=== PATIENT | female | born 1995 | race Caucasian/White ===

== ENCOUNTER 2016-12-22 10:31 | Emergency (ER) | payer MEDICAID, OTHER ==
[~2016-12-22 10:31] MED LIST: PRENMIS7 PO; TERC.4%V VAGINAL
[2016-12-22 10:57] VITALS: BP 103/60; PULSE 98; RESP 18; TEMP 98.4
--- NOTE | 2016-12-22 11:50 | PD ---
HPI Chief Complaint contractile pain for 1 hour Date Seen: Dec 22, 2016 Time Seen: 11:15 (Jason Galvan MD R1) Travel History International Travel<30 Days: No Contact w/Intl Traveler<30Days: No Known Affected Area: No (Jason Galvan MD R1) History of Present Illness HPI 21-year-old at 31 and 6 weeks presents with 1 hour of contractile pain this morning. Patient treated with terconazole [address] Vickey Salcido for yeast infection. Patient notes some vaginal discharge over the past few days. Patient denies chest pain, vomiting, diarrhea, DVT calf pain, but feels like she gets short of breath on exertion. Monitor shows category 1 tracing. Para: 1 : 3 Miscarriage: 1 (Jason Galvan MD R1) History Past Medical History Medical History: Denies Significant Hx (Jason Galvan MD R1) Obstetric History Obstetric History FTSVD x 1 SAB x 1 (Mckenna Nur MD) Past Surgical History Surgical History: No Previous Surgery (Jason Galvan MD R1) Family History Family History: Negative (Jason Galvan MD R1) Social History Alcohol Use: No Tobacco Use: No Substance Abuse: No (Jason Galvan MD R1) Allergies-Medications (Allergen,Severity, Reaction): Coded Allergies: No Known Allergies (Unverified , 12/21/16) Home Meds Active Scripts Terconazole Vaginal Cream (Terazol 7 Vaginal Cream)0.4 % Cream1 Appl VAGINAL HS #45 GM Ref 0 1 applicatorful intravaginally x 7 nights Prov:Chepe Ramirez MD 12/21/16 W/O Vit A W/ Fe Carbo Pack (Citranatal B-Calm Pack)20-1 & 25 (2) Mg Pack1 Ea PO DIRECTED #30 BLISTER Ref 0 30 day supply. Prov:Karolina Saavedra CNM CONSULTING SOLUTION MANAGER 07/13/16 Review of Systems Except as stated in HPI: all other systems reviewed are Neg (Jason Galvan MD R1) Physical Exam Vital Signs Date Time Temp Pulse Resp B/P Pulse Ox O2 Delivery O2 Flow Rate FiO2 12/22/16 10:57 18 12/22/16 10:57 98.4 98 103/60 Narrative GENERAL: Well-nourished, well-developed patient in NAD. SKIN: Warm and dry. HEAD: Normocephalic and atraumatic. EYES: No scleral icterus. No injection or drainage. EOMI. ENT: No nasal drainage noted. Mucous membranes pink. Airway patent. NECK: Supple, trachea midline. CARDIOVASCULAR: Regular rate and rhythm without murmurs, gallops, or rubs. RESPIRATORY: Breath sounds equal bilaterally w/no increased WOB. No accessory muscle use. ABDOMEN/GI: Abdomen soft, non-tender, no rebound, no guarding Gravid to [32] weeks size Fundal Height: [32] GENITOURINARY: External genitalia intact and normal in appearance; copious while , curdy discharge in the vagina; cervical normal in appearance Cervix: [open] Dilatation: [1] Effacement: [25] Station: [-3] Presentation: [vtx] Membranes: [undetermined] Uterine Contractions: [no] FHT's: Category: [1] Baseline: [140] Reactive: [yes] Variability: [moderate] Decels: [0] EXTREMITIES: No cyanosis or edema. NEUROLOGICAL: Awake and alert. Motor and sensory grossly within normal limits. CN II-XII grossly intact. Normal speech. (Jason Galvan MD R1) Data Data Vital Signs Reviewed: Yes Orders Vital Signs (Adult) .ON ADMISSION (12/22/16 10:51) ^ Labor Status (12/22/16 10:51) ^ Non Stress Test (12/22/16 10:51) ^ Hydration (12/22/16 10:51) Fibronectin (12/22/16 10:55) Urinalysis - C+S If Indicated (12/22/16 11:18) (Jason Galvan MD R1) Labs Laboratory Tests Test 12/22/16 11:34 Urine Color YELLOW Urine Turbidity HAZY Urine pH 7.0 Urine Specific [place] 1.015 Urine Protein NEG mg/dL Urine Glucose (UA) 70 mg/dL Urine Ketones NEG mg/dL Urine Occult Blood NEG Urine Nitrite NEG Urine Bilirubin NEG Urine Urobilinogen LESS THAN 2.0 MG/DL Urine Leukocyte Esterase NEG Urine RBC 1 /hpf Urine WBC 1 /hpf Urine Squamous Epithelial 1 /hpf Cells Urine Bacteria RARE /hpf Urine Mucus FEW /lpf Microscopic Urinalysis Comment CULT NOT INDICATED Fibronectin NEGATIVE (Mckenna Nur MD) MDM Narrative Course / MDM 21-year-old at 31 and 6 weeks gestation presents with 1 hour of contractile pain. Monitor shows no contractions but category 1 tracing. 1. IUP - Category 1 tracing and no contractions - F/u with Dr Ramirez 2. Cramping pain, antepartum - No contractions on monitor - fibronectin test - UA 3. Yeast infection - Continue terconazole as prescribed (Jason Galvan MD R1) Narrative Course / MDM 21 y/o with IUP at 31.6 wks with c/o contractions FFN neg no evidence of labor at this time PTL precautions reviewed. Increase hydration. Attending Attestation The exam, history, and the medical decision-making described in the above note were completed with the assistance of the resident provider. I reviewed and agree with the findings presented. I attest that I had a [id number] encounter with the patient on the same day, and personally performed and documented my assessment and findings in the medical record. (Mckenna Nur MD) Diagnosis Diagnosis: Primary Impression: Cramping affecting , antepartum Additional Impression: Yeast infection involving the vagina and surrounding area Disposition: 01 DISCHARGE HOME Condition: Stable Patient Instructions: Labor (ED) Jason Galvan MD R1 Dec 22, 2016 11:50 Mckenna Nur MD Dec 22, 2016 12:46
[2016-12-22 12:04] LABS: BACTERIA, URINE RARE /hpf; BLOOD, URINE NEG (NEG); GLUCOSE,URINE 70 mg/dL (NEG); KETONE, URINE NEG (NEG); MUCUS URINE FEW /lpf (OCC); NITRITE,URINE NEG (NEG); SQUAMOUS EPITHELIAL CELL URINE 1 /hpf (0-5); URINE COLOR YELLOW (YELLW/STRAW)
[2016-12-22 12:05] LABS: COMMENT (UR) CULT NOT INDICATED; CULTURE IF INDICATED CULT NOT INDICATED
== END 2016-12-22 13:04 | disposition home or self-care (01) ==
LOC: HOBED 10:31
DX: O26.893 Other specified pregnancy related conditions, third trimester (principal); R10.9 Unspecified abdominal pain; O98.813 Other maternal infectious and parasitic diseases complicating pregnancy, third trimester; B37.3 Candidiasis of vulva and vagina; Z3A.31 31 weeks gestation of pregnancy
CPT/HCPCS: 81001; 82731; 99283

== ENCOUNTER 2017-01-05 15:38 | Emergency (ER) | payer OTHER ==
[~2017-01-05] VITALS: Ht 147.3 cm; Wt 64.9 kg
[~2017-01-05 15:38] MED LIST changes: -TERC.4%V VAGINAL
[2017-01-05] MEDS ORDERED: LACTATED RINGER'S 1000 ML INJ 500 ML IV ONE (16:41)
[2017-01-05] MEDS ORDERED: TERBUTALINE INJ 1 MG/ML AMP SQ ONE (16:45)
--- NOTE | 2017-01-05 17:17 | PD ---
HPI Chief Complaint Decreased movement Date Seen: Jan 05, 2017 Travel History International Travel<30 Days: No Contact w/Intl Traveler<30Days: No Known Affected Area: No History of Present Illness HPI Patient is a 21-year-old at 33 weeks and 5 days who presents with decreased movement since yesterday. [facility] She reports that she stills feels some movement, but feels slower than usual. She has tried pushing on her belly, drinking cold water , sips of Pepsi, without any significant change in her movement. She currently denies any contractions, vaginal bleeding, leakage of fluid. However, she does report having some [place] contractions around 2 PM today. She also reports having a cold, for which she has been taking Tylenol Cold and sinus. She reports runny nose, sore throat, cough, sinus pressure. Para: 1 : 3 Miscarriage: 1 History Past Medical History Medical History: Denies Significant Hx Obstetric History Obstetric History Patient reports that her last was a miscarriage at 25 weeks. Prior to that, she delivered a full-term healthy baby boy at 39 weeks by induction of labor, weighing 7 pounds and 6 ounces. Past Surgical History Surgical History: No Previous Surgery Family History Family History: Negative Social History Narrative Social History Patient reports living with her 3-year-old son and boyfriend. Alcohol Use: No Tobacco Use: No Substance Abuse: No Allergies-Medications (Allergen,Severity, Reaction): Coded Allergies: No Known Allergies (Unverified , 01/04/17) Home Meds Active Scripts W/O Vit A W/ Fe Carbo Pack (Citranatal B-Calm Pack)20-1 & 25 (2) Mg Pack1 Ea PO DIRECTED #30 BLISTER Ref 0 30 day supply. Prov:Karolina Saavedra CNM CHAIR FRAME BUILDER 07/13/16 Discontinued Scripts Terconazole Vaginal Cream (Terazol 7 Vaginal Cream)0.4 % Cream1 Appl VAGINAL HS #45 GM Ref 0 1 applicatorful intravaginally x 7 nights Prov:Chepe Ramirez MD 12/21/16 Review of Systems General / Constitutional: Fever Cardiovascular: No: Chest Pain or Discomfort Respiratory: No: Short of Breath Gastrointestinal: No: Nausea, Vomiting, Abdominal Pain Genitourinary: No: Dysuria Physical Exam 102/52, 114, 15, 0 pain Narrative GENERAL: Well-nourished, well-developed patient. SKIN: Warm and dry. HEAD: Normocephalic and atraumatic. EYES: No scleral icterus. No injection or drainage. ENT: No nasal drainage noted. Mucous membranes pink. Airway patent. NECK: Supple, trachea midline. No JVD. CARDIOVASCULAR: Regular rate and rhythm without murmurs, gallops, or rubs. RESPIRATORY: Breath sounds equal bilaterally. No accessory muscle use. ABDOMEN/GI: Abdomen soft, non-tender, bowel sounds present, no rebound, no guarding Gravid to 33 weeks size GENITOURINARY: External Genitalia: intact and normal in appearance Cervix: Posterior Dilatation: Closed Effacement: Thick Station: Far Presentation: Vertex Membranes: [intact] Uterine Contractions: Every minute FHT's: Category: Category 1 Baseline: 135 Reactive: Reactive Variability: moderate Decels: none EXTREMITIES: No cyanosis or edema. BACK: Nontender without obvious deformity. No CVA tenderness. NEUROLOGICAL: Awake and alert. Motor and sensory grossly within normal limits. Five out of 5 muscle strength in all muscle groups. Normal speech. Data Data Vital Signs Reviewed: Yes Orders Vital Signs (Adult) .ON ADMISSION (01/05/17 16:41) ^ Labor Status (01/05/17 16:41) ^ Non Stress Test (01/05/17 16:41) ^ Hydration (01/05/17 16:41) Fibronectin (01/05/17 16:41) Lactated Ringer's 1000 Ml Inj (Lr 1000 M (01/05/17 16:41) Terbutaline Inj (Brethine Inj) (01/05/17 16:45) Fentanyl Inj (Fentanyl Inj) (01/05/17 17:00) MDM Plan Patient is a 21-year-old at 33 weeks and 5 days who presents with decreased movement since yesterday. She was found to have contractions about every minute. Cervical exam is long thick and closed. 1. contractions LR IV bolus Terbutaline 1 Fentanyl 1 Monitor vitals Monitor labor status Monitor heart rate Addendum: pt seems to have stopped maite. Plan on d/c. Patient discussed with Dr. Russell. Diagnosis Diagnosis: Primary Impression: contractions Additional Impression: Decreased movement Disposition: 01 DISCHARGE HOME Condition: Good Dave Singh MD R1 Jan 05, 2017 17:17
[2017-01-05 18:15] VITALS: TEMP 97.9
[2017-01-05 18:16] VITALS: BP 98/48; PULSE 119
== END 2017-01-05 18:47 | disposition home or self-care (01) ==
LOC: HOBED 15:38
DX: O36.8130 Decreased fetal movements, third trimester, not applicable or unspecified (principal); O47.03 False labor before 37 completed weeks of gestation, third trimester; R09.89 Other specified symptoms and signs involving the circulatory and respiratory systems; J02.9 Acute pharyngitis, unspecified; R05 Cough; Z3A.33 33 weeks gestation of pregnancy; Z79.899 Other long term (current) drug therapy
CPT/HCPCS: 59025; 82731; 96361; 96372; 96374; 99284; J3010; J3105; J7120

== ENCOUNTER 2017-01-24 13:21 | Emergency (ER) | payer OTHER ==
--- NOTE | 2017-01-24 14:22 | PD ---
HPI Chief Complaint Vaginal discharge (Dave Shirley MD R1) Travel History International Travel<30 Days: No Contact w/Intl Traveler<30Days: No Known Affected Area: No (Dave Shirley MD) History of Present Illness HPI at 36 and 3 weeks who presents for discharge from vagina. Patient states that 3 AM this morning she got up to the bathroom and noticed her underwear were wet. When she woke up to start the day she went to go urinate again and noticed her underwear were wet again. She then came into the ED. She states she currently has no contractions, no large releases of fluid from her vagina. Occasionally will have a release of fluid when the baby kicks. Feels as though she needs to go to the bathroom more often, otherwise no change in urination. Denies nausea, vomiting, fever, chills, shortness of breath, chest pain, abdominal pain, change in bowel habits. Para: 1 : 3 Miscarriage: 1 (Dave Shirley MD) History Past Medical History Medical History: Denies Significant Hx (Dave Shirley MD) Past Surgical History Surgical History: No Previous Surgery (Dave Shirley MD) Family History Family History: Negative (Dave Shirley MD) Social History Alcohol Use: No Tobacco Use: No Substance Abuse: No (Dave Shirley MD) Allergies-Medications (Allergen,Severity, Reaction): Coded Allergies: No Known Allergies (Unverified , 01/23/17) Home Meds Active Scripts W/O Vit A W/ Fe Carbo Pack (Citranatal B-Calm Pack) 20-1 & 25 (2) Mg Pack, 1 EA PO DIRECTED for Nutritional Supplement, #30 BLISTER 0 Refills 30 day supply. Prov:Karolina Saavedra CNMP 07/13/16 Review of Systems General / Constitutional: No: Fever, Weight Loss, Chills Eyes: No: Diploplia, Blurred Vision, Visual changes, Pain HENT: No: Headaches, Vertigo, Dental Difficulties, Lightheadedness Cardiovascular: No: Irregular Rhythm, Chest Pain or Discomfort, Palpitations, Tachycardia, Syncope Respiratory: No: Cough, Short of Breath, Wheezing Gastrointestinal: No: Nausea, Vomiting, Diarrhea, Abdominal Pain, Hematemesis, Hematochezia, Constipation Genitourinary: Frequency, Nocturia, Incontinence, No: Urgency, Dysuria, Hematuria, Decreased Urinary Output, Oliguria, Hesitancy, Dribbling, Discharge, Vaginal Bleeding Musculoskeletal: No: Limited ROM, Weakness, Cramping, Edema Skin: No Rash, No Itching, No Dryness, No Lumps Neurologic: No: Weakness, Dizziness, Syncope Psychiatric: No: Anxiety, Depression Endocrine: Polyuria, No: Heat Intolerance, Cold Intolerance, Polydipsia (Dave Shirley MD R1) Physical Exam Narrative GENERAL: Well-nourished, well-developed patient. SKIN: Warm and dry. HEAD: Normocephalic and atraumatic. EYES: No scleral icterus. No injection or drainage. ENT: No nasal drainage noted. Mucous membranes pink. Airway patent. NECK: Supple, trachea midline. No JVD. CARDIOVASCULAR: Regular rate and rhythm without murmurs, gallops, or rubs. RESPIRATORY: Breath sounds equal bilaterally. No accessory muscle use. ABDOMEN/GI: Abdomen soft, non-tender, bowel sounds present, no rebound, no guarding EXTREMITIES: No cyanosis or edema. BACK: Nontender without obvious deformity. No CVA tenderness. NEUROLOGICAL: Awake and alert. Motor and sensory grossly within normal limits. Five out of 5 muscle strength in all muscle groups. Normal speech. (Dave Shirley MD R1) MDM Plan 21 year old at 36 and 3/7 weeks who presented with occasional wetness in her underwear and urination when her baby kicked. Amnisure negative. Likely incontinence. -Category 1 tracing reassuring -Patient advised on creating urination schedules -Patient counseled on sings and symptoms to return and be reevaluated in the L& D ED d/w Dr. Spear (Dave Shirley MD R1) Diagnosis Diagnosis: Primary Impression: 36 weeks gestation of Additional Impressions: No leakage of amniotic fluid into vagina False labor before 37 completed weeks of gestation during in third trimester, antepartum Disposition: 01 DISCHARGE HOME Condition: Stable Attestation Patient seen at the bedside. Agree with resident's assessment and plan. (Perla Spear MD) Dave Shirley MD R1 Jan 24, 2017 14:22 Perla Spear MD Jan 24, 2017 16:02
[2017-02-07] MEDS ORDERED: FERRTAB2 PO (13:32)
[2017-02-24] MEDS ORDERED: CEPH-460 PO (11:06)
== END 2017-01-24 14:45 | disposition home or self-care (01) ==
LOC: HOBED 13:21
DX: Z03.71 Encounter for suspected problem with amniotic cavity and membrane ruled out (principal); N39.3 Stress incontinence (female) (male); O47.03 False labor before 37 completed weeks of gestation, third trimester; Z3A.36 36 weeks gestation of pregnancy
CPT/HCPCS: 84112; 99281

== ENCOUNTER 2017-02-07 16:51 | Emergency (ER) | payer OTHER ==
[~2017-02-07 16:51] MED LIST changes: +FERRTAB2 PO
--- NOTE | 2017-02-07 18:00 | PD ---
HPI Chief Complaint Contractions Date Seen: Feb 07, 2017 Time Seen: 17:55 Travel History International Travel<30 Days: No Contact w/Intl Traveler<30Days: No Known Affected Area: No History of Present Illness HPI 21-year-old who is at 38 weeks and 3 days was seen at the office today and was noted to be 3 cm. She lives in [place], and just wanted to ensure that her irregular contractions did not signify labor. Patient has been complaining of irregular contractions for the past several days associated with some pelvic pressure. Weeks Gestation: 38 Para: 2 : 3 History Past Medical History Medical History: Denies Significant Hx Obstetric History Obstetric History Spontaneous vaginal delivery 7 lbs. 6 oz. 26 weeks demise Past Surgical History Surgical History: No Previous Surgery Family History Family History: Negative Social History Alcohol Use: No Tobacco Use: No Substance Abuse: No Allergies-Medications (Allergen,Severity, Reaction): Coded Allergies: No Known Allergies (Unverified , 02/07/17) Home Meds Active Scripts Multi-Vit/Iron-Folic [id number] C (Ferralet) 90-1-0.012-120 mg Tab, 1 CAPLET PO DAILY for 30 Days, #30 CAPLET Prov:Lori DowP 02/07/17 W/O Vit A W/ Fe Carbo Pack (Citranatal B-Calm Pack) 20-1 & 25 (2) Mg Pack, 1 EA PO DIRECTED for Nutritional Supplement, #30 BLISTER 0 Refills 30 day supply. Prov:Karolina Saavedra CNM [facility] 07/13/16 Review of Systems Except as stated in HPI: all other systems reviewed are Neg Physical Exam Narrative GENERAL: Well-nourished, well-developed patient. SKIN: Warm and dry. HEAD: Normocephalic and atraumatic. EYES: No scleral icterus. No injection or drainage. ENT: No nasal drainage noted. Mucous membranes pink. Airway patent. NECK: Supple, trachea midline. No JVD. CARDIOVASCULAR: Regular rate and rhythm without murmurs, gallops, or rubs. RESPIRATORY: Breath sounds equal bilaterally. No accessory muscle use. BREASTS: Bilateral exam showed no masses , no retractions, no nipple discharge. ABDOMEN/GI: Abdomen soft, non-tender, bowel sounds present, no rebound, no guarding Gravid to [-38] weeks size Fundal Height: [-] GENITOURINARY: External Genitalia: intact and normal in appearance BUS glands: [Normal-] Cervix: Posterior [-] Dilatation: [-3] Effacement: [50-] Station: [--3] Presentation: [Vertex-] Membranes: [intact] Uterine Contractions: [Occasional-] FHT's: Category: [-1] Baseline: [150-] Reactive: [-Moderate] Variability: [-Moderate] Decels: [-Absent] EXTREMITIES: No cyanosis or edema. BACK: Nontender without obvious deformity. No CVA tenderness. NEUROLOGICAL: Awake and alert. Motor and sensory grossly within normal limits. Five out of 5 muscle strength in all muscle groups. Normal speech. Data Data Vital Signs Reviewed: Yes Group B Strep: Negative [facility] Medical Record Reviewed: Yes Plan 21-year-old at 38 weeks 3 days with false labor, no cervical change from her appointment this afternoon at 1 PM. Group B strep negative Reviewed labor precautions Patient has appointment for follow-up next Monday Diagnosis Diagnosis: Primary Impression: False labor after 37 weeks of gestation without delivery Additional Impression: 38 weeks gestation of Disposition: DISCHARGE HOME Purvi Robbins MD Feb 07, 2017 18:00
[2017-02-24] MEDS ORDERED: CEPH-460 PO (11:06)
== END 2017-02-07 18:00 | disposition home or self-care (01) ==
LOC: HOBED 16:51
DX: O47.1 False labor at or after 37 completed weeks of gestation (principal); Z3A.38 38 weeks gestation of pregnancy
CPT/HCPCS: 99283

== ENCOUNTER 2017-02-20 12:02 | Inpatient (IN) | payer OTHER ==
[~2017-02-20] VITALS: Ht 147.3 cm; Wt 69.0 kg
[2017-02-20] VITALS (51 sets, daily range): BP systolic 85–153; BP diastolic 41–98; PULSE 86–116; RESP 15–18; TEMP 97.3–98.8
--- NOTE | 2017-02-20 12:48 | PD ---
HPI Chief Complaint Contractions with pressure Date Seen: Feb 20, 2017 Travel History International Travel<30 Days: No Contact w/Intl Traveler<30Days: No History of Present Illness HPI Mrs. Mason is a 21-year-old at 40/2 weeks gestation presenting with vaginal pressure and contractions. She states that [facility] morning for the same complaints and was sent to the OB ED after evaluation. At the office her cervix was soft and stretching and found to be 5 cm dilation. Since that time she states that she has had contractions every 3-5 minutes for over half an hour. She endorses good movement and denies any loss of fluid, dysuria, vaginal bleeding, or discharge. She reports intermittent headaches with blurry vision as well as mild edema of the bilateral lower extremities. She has not had hypertension during this per chart review. Otherwise she has no complaints and denies a complete review of systems. Weeks Gestation: 40 Para: 3 : 1 History Past Medical History Narrative Medical Denies significant medical history Obstetric History Obstetric History First - 25 week miscarriage Second - uncomplicated at 39 weeks gestation with 7 lbs. 6 oz. baby boy Third - uncomplicated thus far Past Surgical History Surgical History: No Previous Surgery Family History Narrative Family History Denies significant family medical history Social History Alcohol Use: No Tobacco Use: No Substance Abuse: No Allergies-Medications (Allergen,Severity, Reaction): Coded Allergies: No Known Allergies (Unverified , 02/20/17) Home Meds Active Scripts Multi-Vit/Iron-Folic [id number]-X31-Mlx C (Ferralet) 90-1-0.012-120 mg Tab, 1 CAPLET PO DAILY for 30 Days, #30 CAPLET Prov:Lori Dow 02/07/17 W/O Vit A W/ Fe Carbo Pack (Citranatal B-Calm Pack) 20-1 & 25 (2) Mg Pack, 1 EA PO DIRECTED for Nutritional Supplement, #30 BLISTER 0 Refills 30 day supply. Prov:Karolina Saavedra CNM VESSEL ENGINEER 07/13/16 Review of Systems Except as stated in HPI: all other systems reviewed are Neg Eyes: Visual changes (mild) Neurologic: Headache (mild) Physical Exam Narrative GENERAL: Well-nourished, well-developed patient. SKIN: Warm and dry. HEAD: Normocephalic and atraumatic. EYES: No scleral icterus. No injection or drainage. ENT: No nasal drainage noted. Mucous membranes pink. Airway patent. NECK: Supple, trachea midline. No JVD. CARDIOVASCULAR: Regular rate and rhythm without murmurs, gallops, or rubs. RESPIRATORY: Breath sounds equal bilaterally. No accessory muscle use. ABDOMEN/GI: Abdomen soft, non-tender, bowel sounds present, no rebound, no guarding Gravid to 40 weeks GENITOURINARY: External Genitalia: intact and normal in appearance Cervix: Mid Dilatation: 5 cm Effacement: 80% Station: -2 Membranes: Intact Uterine Contractions: Every 3-5 minutes FHT's: Category: 1 Baseline: 140s Reactive: Positive Variability: Moderate Decels: None EXTREMITIES: No cyanosis. No significant lower extremity edema. BACK: Nontender without obvious deformity. No CVA tenderness. NEUROLOGICAL: Awake and alert. Motor and sensory grossly within normal limits. Five out of 5 muscle strength in all muscle groups. Normal speech. Data Data Vital Signs Reviewed: Yes Group B Strep: Negative MDM Medical Record Reviewed: Yes Plan Mrs. Mason is a 21-year-old at 40/2 weeks gestation presenting with vaginal pressure and contractions 1. IUP at 40 weeks gestation -Continue routine OB care -Continue vitamins -Encourage by mouth hydration -FHT category 1, reassuring -UA: Pending -Plan to admit for labor, orders placed 2. GBS Negative SDW: Dr. Robbins Diagnosis Diagnosis: Primary Impression: 40 weeks gestation of Additional Impression: Uterine contractions during Víctor Faria MD R2 Feb 20, 2017 12:48
[2017-02-20] MEDS ORDERED: LACTATED RINGER'S 1000 ML INJ 1,000 ML IV PRN (13:17)
--- NOTE | 2017-02-20 13:29 | HHI.HP ---
History & Physical H&P HPI Chief Complaint Contractions with pressure Date Seen: Feb 20, 2017 Travel History International Travel<30 Days: No Contact w/Intl Traveler<30Days: No History of Present Illness HPI Mrs. Mason is a 21-year-old at 40/2 weeks gestation presenting with vaginal pressure and contractions. She states that [facility] the same complaints and was sent to the OB ED after evaluation. At the office her cervix was soft and stretching and found to be 5 cm dilation. Since that time she states that she has had contractions every 3-5 minutes for over half an hour. She endorses good movement and denies any loss of fluid, dysuria, vaginal bleeding, or discharge. She reports intermittent headaches with blurry vision as well as mild edema of the bilateral lower extremities. She has not had hypertension during this per chart review. Otherwise she has no complaints and denies a complete review of systems. Weeks Gestation: 40 Para: 3 : 1 History (Limited) History Past Medical History Narrative Medical Denies significant medical history Obstetric History Obstetric History First - 25 week miscarriage Second - uncomplicated at 39 weeks gestation with 7 lbs. 6 oz. baby boy Third - uncomplicated thus far Past Surgical History Surgical History: No Previous Surgery Family History Narrative Family History Denies significant family medical history Social History Alcohol Use: No Tobacco Use: No Substance Abuse: No Allergies-Medications Allergies-Medications (Allergen,Severity, Reaction): Coded Allergies: No Known Allergies (Unverified , 02/20/17) Home Meds Active Scripts Multi-Vit/Iron-Folic [id number] C (Ferralet) 90-1-0.012-120 mg Tab, 1 CAPLET PO DAILY for 30 Days, #30 CAPLET Prov:Lori Dow [employer] 02/07/17 W/O Vit A W/ Fe Carbo Pack (Citranatal B-Calm Pack) 20-1 & 25 (2) Mg Pack, 1 EA PO DIRECTED for Nutritional Supplement, #30 BLISTER 0 Refills 30 day supply. Prov:Karolina Saavedra CNM [employer]Y ANALYST 07/13/16 ROS Review of Systems Except as stated in HPI: all other systems reviewed are Neg Eyes: Visual changes (mild) Neurologic: Headache (mild) Physical Exam Physical Exam Narrative GENERAL: Well-nourished, well-developed patient. SKIN: Warm and dry. HEAD: Normocephalic and atraumatic. EYES: No scleral icterus. No injection or drainage. ENT: No nasal drainage noted. Mucous membranes pink. Airway patent. NECK: Supple, trachea midline. No JVD. CARDIOVASCULAR: Regular rate and rhythm without murmurs, gallops, or rubs. RESPIRATORY: Breath sounds equal bilaterally. No accessory muscle use. ABDOMEN/GI: Abdomen soft, non-tender, bowel sounds present, no rebound, no guarding Gravid to 40 weeks GENITOURINARY: External Genitalia: intact and normal in appearance Cervix: Mid Dilatation: 5 cm Effacement: 80% Station: -2 Membranes: Intact Uterine Contractions: Every 3-5 minutes FHT's: Category: 1 Baseline: 140s Reactive: Positive Variability: Moderate Decels: None EXTREMITIES: No cyanosis. No significant lower extremity edema. BACK: Nontender without obvious deformity. No CVA tenderness. NEUROLOGICAL: Awake and alert. Motor and sensory grossly within normal limits. Five out of 5 muscle strength in all muscle groups. Normal speech. Data Data Data Vital Signs Reviewed: Yes Group B Strep: Negative MDM MDM Medical Record Reviewed: Yes Plan Mrs. Mason is a 21-year-old at 40/2 weeks gestation presenting with vaginal pressure and contractions 1. IUP at 40 weeks gestation -Continue routine OB care -Continue vitamins -Encourage by mouth hydration -FHT category 1, reassuring -UA: Pending -Plan to admit for labor, orders placed 2. GBS Negative SDW: Dr. Robbins Diagnosis Diagnosis: Primary Impression: 40 weeks gestation of Additional Impression: Uterine contractions during Víctor Faria MD R2 Feb 20, 2017 13:29
[2017-02-20] MEDS ORDERED: CITRIC ACID-SODIUM CITRATE LIQ 30 ML UDC PO SCH (13:30)
[2017-02-20] MEDS ORDERED: ONDANSETRON HCL 4 MG/2 ML VIAL IV PRN (13:30)
[2017-02-20] MEDS ORDERED: LIDOCAINE HCL 1% 50 ML VIAL I-DERMAL PRN (13:30)
[2017-02-20] MEDS ORDERED: LIDOCAINE HCL 1% 50 ML VIAL INFIL PRN (13:30)
[2017-02-20] MEDS ORDERED: MINERAL OIL 10 ML VIAL TOPICAL PRN (13:30)
[2017-02-20] MEDS ORDERED: SODIUM CHLORID 0.9% 500 ML INJ 500 ML IV PRN (13:30)
[2017-02-20] MEDS ORDERED: SODIUM CHLOR 0.9% 1000 ML INJ 1,000 ML IV PRN (13:37)
[2017-02-20 13:59] LABS: BACTERIA, URINE RARE /hpf; BLOOD, URINE NEG (NEG); GLUCOSE,URINE NEG (NEG); KETONE, URINE NEG (NEG); MUCUS URINE FEW /lpf (OCC); NITRITE,URINE NEG (NEG); PH, URINE 6.5 (5.0-8.5); SQUAMOUS EPITHELIAL CELL URINE 7 /hpf (0-5); URINE COLOR YELLOW (YELLW/STRAW)
[2017-02-20 14:00] LABS: COMMENT (UR) CULT NOT INDICATED; CULTURE IF INDICATED CULT NOT INDICATED
[2017-02-20 14:10] LABS: AUTOMATED NEUTROPHIL # 11.5 TH/MM3 (1.8-7.7); BASOPHIL % 0.2 % (0.0-2.0); EOSINOPHIL # 0.2 TH/MM3 (0-0.4); EOSINOPHIL % 1.4 % (0.0-4.0); HEMATOCRIT 32.1 % (35.0-46.0); LYMPH % 12.8 % (9.0-44.0); MEAN CELL VOLUME 73.3 FL (80.0-100.0); MEAN CORPUSCULAR HGB CONC 31.4 % (32.0-36.0); MONO % 10.6 % (0.0-8.0); PLATELET COUNT 185 TH/MM3 (150-450); RED BLOOD COUNT 4.38 MIL/MM3 (4.00-5.30); RED CELL DISTRIBUTION WIDTH 18.4 % (11.6-17.2); WHITE BLOOD COUNT 15.3 TH/MM3 (4.0-11.0)
[2017-02-20 14:11] LABS: HEMO FLAGS AUTO DIFF
[2017-02-20] MEDS ORDERED: OXYTOCIN 30 UNITS-500ML PREMIX 500 ML IV ONE ×2 (14:15→20:45)
[2017-02-20 14:49] LABS: BANDS 6 % (0-6); METAMYELOCYTES 4 % (0-1); NEUTROPHIL # MANUAL DIFF 13.2 TH/MM3 (1.8-7.7); PLATELET ESTIMATE SMEAR NORMAL (NORMAL); PLATELET MORPHOLOGY NORMAL (NORMAL); POLYS (SEG NEUTROPHILS) 76 % (16-70); SCAN/DIFF FINAL DIFF MANUAL; TOXIC GRANULATION 2+ (NORMAL); WBC DIFF SAMPLE 100
[2017-02-20] MEDS ORDERED: fentaNYL 2MCG-BUPIV 0.125% INJ 100 ML ONE (15:19)
--- NOTE | 2017-02-20 15:43 | PD.LABORPN ---
Subjective Subjective 21 yo in active labor. Pt seen and examined at bedside. Pt has no complaints. AROM @ 1515 and vaginal exam done. GBS negative Objective Vital Signs Vital Signs Date Time Temp Pulse Resp B/P (MAP) Pulse Ox O2 Delivery O2 Flow Rate FiO2 02/20/17 14:38 18 02/20/17 14:35 97 108/62 (77) 02/20/17 14:00 97 02/20/17 13:39 100 18 103/69 (80) 02/20/17 13:39 98.8 Objective Pelvic Exam: Dilatation: 6 Effacement: 80 Station: -2 Presentation: vertex Membranes: AROM, clear Uterine Contractions: intermittent, every 3-7mins FHT's: Category: 1 Baseline: 140 Reactive: positive Variability: moderate Decels: none Weeks Gestation: 40 Gest Age Assessed Date: Feb 20, 2017 Gest Age Assessed Time: 15:24 Pt started active labor?: Yes Active labor start date: Feb 20, 2017 Active labor start time: 12:15 Medical induction of labor?: No Artificial rupture of membrane: Yes Artificial ROM date: Feb 20, 2017 Artifical ROM time: 15:15 Assessment/Plan Problem List: (1) 40 weeks gestation of ICD Codes: Z3A.40 - 40 weeks gestation of Status: Acute Assessment and Plan 21 yo @ 40/2 in active labor. 1. IUP @ 40/2 - continue with routine OB care -encourage oral hydration -FHT, cat 1 -Pt started on oxytocin to help with labor progression, will continue to assess labor progression. Kim Lazar Dr., MD R1 Feb 20, 2017 15:43
[2017-02-20] MEDS ORDERED: ePHEDrine/NS 25 MG/5 ML SYR ONE (15:57)
[2017-02-20] MEDS ORDERED: DIPHTH/TETANUS/ACEL PERTUSSIS (BOOSTER) 0.5 ML VIAL/PFS IM ONE (16:00)
[2017-02-20] MEDS ORDERED: MEASLES, MUMPS, RUBELLA VACCINE 0.5 ML VIAL SQ ONE (16:00)
[2017-02-20] MEDS ORDERED: OXYTOCIN 30 UNITS-500ML PREMIX 500 ML IV SCH ×2 (16:00→20:45)
[2017-02-20] MEDS: LACTATED RINGER'S 1000 ML INJ 1,000 ML IV SCH ×2 (16:02→18:53)
[2017-02-20] MEDS ORDERED: ePHEDrine/NS 25 MG/5 ML SYR IV PRN (17:00)
[2017-02-20] MEDS ORDERED: fentaNYL 2MCG-BUPIV 0.125% 100 ML EPIDURAL SCH (17:00)
[2017-02-20] MEDS ORDERED: ACETAMINOPHEN 325 MG TAB PO PRN ×2 (17:00→20:45)
[2017-02-20] MEDS ORDERED: DO NOT ADMINISTER ANTICOAGULANTS PRN (17:00)
[2017-02-20] MEDS ORDERED: NO SYSTEM NARCOTICS PRN (17:00)
--- NOTE | 2017-02-20 17:47 | PD.LABORPN ---
Subjective Subjective 21 yo @ 40 wks. Pt doing well. AROM at 1515. Objective Vital Signs Vital Signs Date Time Temp Pulse Resp B/P (MAP) Pulse Ox O2 Delivery O2 Flow Rate FiO2 02/20/17 17:30 89 106/72 (83) 02/20/17 17:15 97 18 98/59 (72) 02/20/17 17:05 92 02/20/17 17:00 91 02/20/17 17:00 86 102/60 (74) 02/20/17 16:55 103 02/20/17 16:50 90 02/20/17 16:45 90 02/20/17 16:45 116 108/63 (78) 02/20/17 16:40 92 02/20/17 16:35 104 02/20/17 16:30 102 02/20/17 16:30 98 99/56 (70) 02/20/17 16:25 110 02/20/17 16:20 97 02/20/17 16:15 92 02/20/17 16:15 87 103/59 (74) 02/20/17 16:10 105 105/61 (76) 02/20/17 16:10 108 02/20/17 16:06 18 02/20/17 16:05 94 02/20/17 16:05 99 104/56 (72) 02/20/17 16:00 98 104/59 (74) 02/20/17 16:00 102 02/20/17 15:58 18 02/20/17 15:55 104 02/20/17 15:55 109 98/41 (60) 02/20/17 15:53 109 106/58 (74) 02/20/17 15:50 100 1817 15:50 104 105/59 (74) 02/20/17 15:46 109 89/54 (66) 02/20/17 15:45 103 106/59 (75) 02/20/17 15:45 108 02/20/17 15:30 102 02/20/17 15:26 98.2 1817 15:26 94 108/64 (79) 17 15:25 18 1817 14:38 18 17 14:35 97 108/62 (77) 02/20/17 14:00 97 02/20/17 13:39 100 18 103/69 (80) 02/20/17 13:39 98.8 Objective Pelvic Exam: Cervix: midposition Dilatation: 8 Effacement: 90 Station: -1 Presentation: vertex Membranes:AROM Uterine Contractions: present every 3 mins FHT's: Category: 1 Baseline: 140 Reactive: positive Variability: moderate Decels: none Weeks Gestation: 40 Gest Age Assessed Date: Feb 20, 2017 Gest Age Assessed Time: 15:24 Pt started active labor?: Yes Active labor start date: Feb 20, 2017 Active labor start time: 12:15 Medical induction of labor?: No Artificial rupture of membrane: Yes Artificial ROM date: Feb 20, 2017 Artifical ROM time: 15:15 Assessment/Plan Problem List: (1) 40 weeks gestation of ICD Codes: Z3A.40 - 40 weeks gestation of Status: Acute Assessment and Plan 21 yo @ 40/2 in active labor. 1. IUP @ 40/2 - continue with routine OB care -encourage oral hydration -FHT, cat 1 - oxytocin put on hold, will continue to assess labor progression. harleyw Kim Vaughn MD R1 Feb 20, 2017 17:47
[2017-02-20] MEDS ORDERED: oxyCODONE/ACETAMINOPHEN 5 MG/325 MG TAB PO PRN (20:45)
[2017-02-20] MEDS ORDERED: ALUMINUM/MAGNESIUM/SIMETH 30 ML CUP PO PRN (20:45)
[2017-02-20] MEDS ORDERED: ONDANSETRON ODT 4 MG TAB PO PRN (20:45)
[2017-02-20] MEDS ORDERED: ZOLPIDEM TARTRATE 5 MG TAB PO PRN (20:45)
[2017-02-20] MEDS ORDERED: SODIUM CHLORIDE 0.9% FLUSH 10 ML FLUSH IV FLUSH PRN (20:45)
[2017-02-20] MEDS: SODIUM CHLORIDE 0.9% FLUSH 10 ML FLUSH IV FLUSH SCH (21:00)
--- NOTE | 2017-02-20 21:01 | PD.OB.DELI ---
Weeks gestation: 40 Gest age assessed date: Feb 20, 2017 Gest age assessed time: 15:24 Pt started active labor?: Yes Active labor start date: Feb 20, 2017 Active labor start time: 12:15 Medical induction of labor?: No Artificial rupture of membrane: Yes Artificial ROM date: Feb 20, 2017 Artifical ROM time: 15:15 Anesthesia: Epidural Episiotomy: None Vaginal Delivery: Normal Presentation: Occiput anterior Nuchal Cord: None Delayed cord clamping (45 sec): Yes Shoulder Dystocia: Suprapubic pressure given, Opal maneuver done, Other ( delivered the post. arm (left arm)) Infant: Male Delivery date: Feb 20, 2017 Delivery time: 20:24 One Minute : 9 Five Minute : 9 Weight: [id number] Placenta: Spontaneous delivery Laceration: Vaginal laceration (midline tear and Left alva-uretheral tear), 2 deg Repair: Chromic running (2.0), Vicryl interrupted (4.0) Estimated blood loss: 300 Additional Information Delivery done by Dr. Robbins (Kim Munoz MD R1) Collaborating MD Lyn CUETO of male infant with shoulder dystocia. Dystocia maneuvers consisted of suprapubic and Opal followed by delivery of posterior arm. Second degree midline laceration and left periurethral laceration repaired under epidural anesthesia. (Purvi Robbins MD) Kim Munoz MD R1 Feb 20, 2017 21:01 Purvi Robbins MD Feb 20, 2017 21:07
[2017-02-20] MEDS: WITCH HAZEL 50%/GLYCERIN 12.5% 40 PAD JAR TOPICAL PRN (23:03)
[2017-02-20] MEDS: BENZOCAINE 20% TOPICAL SPRAY 60 ML CAN TOPICAL PRN (23:04)
[2017-02-20] MEDS: IBUPROFEN 600 MG TAB PO PRN (23:05)
[2017-02-21] MEDS: oxyCODONE/ACETAMINOPHEN 5 MG/325 MG TAB PO PRN ×3 (07:34→21:28)
[2017-02-21] MEDS: IBUPROFEN 600 MG TAB PO PRN ×3 (07:34→21:28)
[2017-02-21] MEDS: DOCUSATE SODIUM 50 MG/SENNA 8.6 MG TAB PO PRN ×2 (07:35→21:28)
--- NOTE | 2017-02-21 08:22 | HHI.OB ---
Subjective Post Day: 1 Remarks Pt seen and examined this morning. day #1 AFVSS overnight. Decreased lochia. Denies dysuria. No breast tenderness. She is feeding the baby via breast and bottle. Appetite good. No nausea or vomiting. Patient has not yet had a bowel movement, but positive flatus.Ambulating well. Denies calf pain or shortness of breath. Pt complains of lower abd cramping pain, rates 10/10. Objective Vitals/I&O Vital Signs Date Time Temp Pulse Resp B/P (MAP) Pulse Ox O2 Delivery O2 Flow Rate FiO2 02/20/17 23:00 97.3 89 18 103/64 (77) 02/20/17 22:00 86 100/57 (71) 02/20/17 21:45 94 97/52 (67) 02/20/17 21:30 95 101/57 (72) 02/20/17 21:15 91 100/52 (68) 02/20/17 21:05 15 02/20/17 21:00 91 104/60 (75) 02/20/17 20:45 91 109/45 (66) 02/20/17 20:41 98.2 02/20/17 20:34 16 02/20/17 20:31 96 109/61 (77) 02/20/17 20:15 112 153/98 (116) 02/20/17 20:00 99 104/66 (79) 02/20/17 19:45 104 105/71 (82) 02/20/17 19:30 93 102/60 (74) 02/20/17 19:27 17 02/20/17 19:15 92 125/55 (78) 02/20/17 19:00 98 100/57 (71) 02/20/17 18:30 94 99/56 (70) 02/20/17 18:08 18 02/20/17 18:00 94 85/57 (66) 02/20/17 17:30 89 106/72 (83) 02/20/17 17:30 98.1 02/20/17 17:15 97 18 98/59 (72) 02/20/17 17:05 92 02/20/17 17:00 91 02/20/17 17:00 86 102/60 (74) 9/18/17 16:55 103 02/20/17 16:50 90 02/20/17 16:45 90 02/20/17 16:45 116 108/63 (78) 02/20/17 16:40 92 02/20/17 16:35 104 02/20/17 16:30 102 02/20/17 16:30 98 99/56 (70) 02/20/17 16:25 110 02/20/17 16:20 97 02/20/17 16:15 92 02/20/17 16:15 87 103/59 (74) 02/20/17 16:10 105 105/61 (76) 02/20/17 16:10 108 02/20/17 16:06 18 02/20/17 16:05 94 02/20/17 16:05 99 104/56 (72) 02/20/17 16:00 98 104/59 (74) 02/20/17 16:00 102 02/20/17 15:58 18 02/20/17 15:55 104 02/20/17 15:55 109 98/41 (60) 02/20/17 15:53 109 106/58 (74) 02/20/17 15:50 100 02/20/17 15:50 104 105/59 (74) 02/20/17 15:46 109 89/54 (66) 02/20/17 15:45 103 106/59 (75) 02/20/17 15:45 108 02/20/17 15:30 102 02/20/17 15:26 98.2 02/20/17 15:26 94 108/64 (79) 02/20/17 15:25 18 02/20/17 14:38 18 02/20/17 14:35 97 108/62 (77) 02/20/17 14:00 97 02/20/17 13:39 100 18 103/69 (80) 02/20/17 13:39 98.8 Objective Remarks GENERAL: Well-nourished, well-developed patient. CARDIOVASCULAR: Regular rate and rhythm without murmurs, gallops, or rubs. RESPIRATORY: Breath sounds equal bilaterally. No accessory muscle use. ABDOMEN/GI: Abdomen soft, slight tenderness to palpation on Lower abd. Fundus: Firm, non-tender at umbilicus. GENITOURINARY: Light to moderate bleeding. EXTREMITIES: No cyanosis or edema, non-tender, without signs of DVT. Medications and IVs Current Medications Medications (Trade) Dose Ordered Sig/Jacinto Route Start Time Stop Time Status Last Admin (NS Flush) 2 ml BID IV FLUSH 02/20/17 21:00 02/20/17 21:00 (NS Flush) 2 ml UNSCH PRN IV FLUSH 02/20/17 20:45 (Tylenol) 650 mg Q4H PRN PO 02/20/17 20:45 (Motrin) 600 mg Q6H PRN PO 02/20/17 20:45 02/21/17 07:34 (Percocet 5-325 Mg) 1 tab Q4H PRN PO 02/20/17 20:45 02/21/17 00:01 (Percocet 5-325 Mg) 2 tab Q4H PRN PO 02/20/17 20:45 02/21/17 07:34 (Americaine 20% Top Spr) 1 spray Q4H PRN TOPICAL 02/20/17 20:45 02/20/17 23:04 (Tucks Pads) 1 applic QID PRN TOPICAL 02/20/17 20:45 02/20/17 23:03 (Melanie-Colace) 2 tab Q12H PRN PO 02/20/17 20:45 02/21/17 07:35 (Ambien) 5 mg HS PRN PO 02/20/17 20:45 (Mag-Al Plus Susp Liq) 15 ml Q8H PRN PO 02/20/17 20:45 (Zofran Odt) 4 mg Q6H PRN PO 02/20/17 20:45 Assessment/Plan Problem List: (1) (spontaneous vaginal delivery) ICD Codes: O80 - Encounter for full-term uncomplicated delivery Assessment and Plan 21 y/o female who is PPD# 1 s/p . -Continue routine care. -Percocet and Motrin PRN pain. -Encouraged OOB. Advised pelvic rest for 6 wks. -Anticipate discharge tomorrow, pending clinical course. MD Tammy Kothari Dr.,Kim Desouza Feb 21, 2017 08:21
[2017-02-21] MEDS: SODIUM CHLORIDE 0.9% FLUSH 10 ML FLUSH IV FLUSH SCH (09:00)
[2017-02-22] MEDS ORDERED: AMMONIA AROMATIC INHALANT 0.33 ML ONE (06:24)
[2017-02-22] MEDS ORDERED: SENN1TAB PO (07:24)
[2017-02-22] MEDS ORDERED: IBUP-232 PO (07:24)
--- NOTE | 2017-02-22 07:24 | HHI.DCPOC ---
Discharge Care Plan Diagnosis: (1) (spontaneous vaginal delivery) Report Symptoms to Your Doctor -Temperature above 100.5 degrees -Redness, of incision or excessive or foul smelling drainage -Unusual pain or calf pain -Increased vaginal bleeding -Painful or difficulty urinating -Feelings of extreme sadness or anxiety after 2 weeks Goals to Promote Your Health * To prevent worsening of your condition and complications * To maintain your health at the optimal level Directions to Meet Your Goals Take your medications as prescribed Follow your dietary instruction Follow activity as directed Ensure plenty of rest for recovery Drink fluids for hydration Keep your appointments as scheduled Take your immunizations and boosters as scheduled If your symptoms worsen call your PCP, if no PCP go to Urgent Care Center or Emergency Room Smoking is Dangerous to Your Health. Avoid second hand smoke Call the 24-hour crisis hotline for domestic abuse at Víctor Faria MD R2 Feb 22, 2017 07:24
--- NOTE | 2017-02-22 07:26 | HHI.OB ---
Subjective Post Day: 2 Remarks Pt seen and examined this morning. day #2 AFVSS overnight. Decreased lochia. Denies dysuria. No breast tenderness. She is feeding the baby via breast and bottle. Appetite good. No nausea or vomiting. Patient has not yet had a bowel movement, but positive flatus.Ambulating well. Denies calf pain or shortness of breath. Patient otherwise has no complaints and ROS is negative. Objective Objective Remarks GENERAL: Well-nourished, well-developed patient. CARDIOVASCULAR: Regular rate and rhythm without murmurs, gallops, or rubs. RESPIRATORY: Breath sounds equal bilaterally. No accessory muscle use. ABDOMEN/GI: Abdomen soft, slight tenderness to palpation on Lower abd. Fundus: Firm, non-tender at umbilicus. GENITOURINARY: Light to moderate bleeding. EXTREMITIES: No cyanosis or edema, non-tender, without signs of DVT. Medications and IVs Current Medications Medications (Trade) Dose Ordered Sig/Jaicnto Route Start Time Stop Time Status Last Admin (NS Flush) 2 ml BID IV FLUSH 02/20/17 21:00 02/20/17 21:00 (NS Flush) 2 ml UNSCH PRN IV FLUSH 02/20/17 20:45 (Tylenol) 650 mg Q4H PRN PO 02/20/17 20:45 (Motrin) 600 mg Q6H PRN PO 02/20/17 20:45 02/21/17 21:28 (Percocet 5-325 Mg) 1 tab Q4H PRN PO 02/20/17 20:45 02/21/17 00:01 (Percocet 5-325 Mg) 2 tab Q4H PRN PO 02/20/17 20:45 02/21/17 21:28 (Americaine 20% Top Spr) 1 spray Q4H PRN TOPICAL 02/20/17 20:45 02/20/17 23:04 (Tucks Pads) 1 applic QID PRN TOPICAL 02/20/17 20:45 02/20/17 23:03 (Melanie-Colace) 2 tab Q12H PRN PO 02/20/17 20:45 02/21/17 21:28 (Ambien) 5 mg HS PRN PO 02/20/17 20:45 (Mag-Al Plus Susp Liq) 15 ml Q8H PRN PO 02/20/17 20:45 (Zofran Odt) 4 mg Q6H PRN PO 02/20/17 20:45 Assessment/Plan Problem List: (1) (spontaneous vaginal delivery) ICD Codes: O80 - Encounter for full-term uncomplicated delivery Assessment and Plan 21 y/o female who is PPD# 2 s/p . -Continue routine care. -Motrin PRN pain. -Encouraged OOB. Advised pelvic rest for 6 wks. -Anticipate discharge today with baby. eusebia Sheldon MD Discharge Planning Today with baby Víctor Faria MD R2 Feb 22, 2017 07:26
[2017-02-22] MEDS: IBUPROFEN 600 MG TAB PO PRN (08:08)
[2017-02-22] MEDS: oxyCODONE/ACETAMINOPHEN 5 MG/325 MG TAB PO PRN (08:09)
[2017-02-22] MEDS: BENZOCAINE 20% TOPICAL SPRAY 60 ML CAN TOPICAL PRN (09:15)
[2017-02-22] MEDS: WITCH HAZEL 50%/GLYCERIN 12.5% 40 PAD JAR TOPICAL PRN (09:15)
[2017-02-24] MEDS ORDERED: CEPH-460 PO (11:06)
== END 2017-02-22 12:30 | disposition home or self-care (01) | DRG 775 ==
LOC: HOBED 12:02 → H2EB 13:24 → H1EA 22:39
PROVIDERS: ADMIT Obstetrics & Gynecology Obstetrics; ATTEND Obstetrics & Gynecology Obstetrics
PROC: 10E0XZZ Delivery of Products of Conception, External Approach (ICD-10-PCS; principal; 2017-02-20)
PROC: 10907ZC Drainage of Amniotic Fluid, Therapeutic from Products of Conception, Via Natural or Artificial Opening (ICD-10-PCS; 2017-02-20)
PROC: 0KQM0ZZ Repair Perineum Muscle, Open Approach (ICD-10-PCS; 2017-02-20)
DX: O66.0 Obstructed labor due to shoulder dystocia (principal); O70.1 Second degree perineal laceration during delivery; Z37.0 Single live birth; Z3A.40 40 weeks gestation of pregnancy
CPT/HCPCS: 59025; 81001; 85007; 85027; 86900; 86901; 90715; J2590; J7120